=== PATIENT | female | born 1990 | race Hispanic/Latino ===

== ENCOUNTER 2016-07-20 21:26 | Emergency (ER) | payer SELFPAY ==
[~2016-07-20] VITALS: Ht 152.4 cm; Wt 52.2 kg
[~2016-07-20 21:26] MED LIST: AUGMENTIN 875 M1 TAB PO; CIPRO HC 0.2%-110 ML OTIC
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
[2016-07-20] MEDS ORDERED: IBUPROFEN600 M1 PO (22:28)
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
[2016-07-20 23:20] VITALS: BP 112/56
== END 2016-07-20 23:29 ==
LOC: ERH 21:26
DX: S20.219A Contusion of unspecified front wall of thorax, initial encounter (principal); M54.9 Dorsalgia, unspecified; V49.40XA Driver injured in collision with unspecified motor vehicles in traffic accident, initial encounter
CPT/HCPCS: 81025